=== PATIENT | female | born 1935 | race Caucasian/White ===

== ENCOUNTER 2018-10-24 11:42 | Emergency (ER) | payer OTHER, BC ==
[2018-10-24 11:53] VITALS: BP 133/73; PULSE 64; TEMP 97.6; BMI 25.4
--- NOTE | 2018-10-24 13:04 | PDOC ---
History of Present Illness - General Chief Complaint: Injury Stated Complaint: FALL // FINGER PAIN Time Seen by Provider: 10/24/18 12:14 - History of Present Illness Initial Comments: 10/24/18 12:58 83-year-old female presents for evaluation of right fourth finger pain. She states she slipped getting out of a cab or going to physical therapy today and injured her right fourth finger. Past History - Past Medical History Allergies/Adverse Reactions: Allergies Allergy/AdvReac Type Severity Reaction Status Date / Time No Known Allergies Allergy Verified 10/24/18 11:51 Home Medications: Ambulatory Orders Clopidogrel Bisulfate [Plavix -] 75 mg PO DAILY 10/24/18 Metoprolol Succinate [Toprol Xl -] mg PO DAILY 10/24/18 Cardiac Disorders: Yes (cad) COPD: No Other medical history: chr back pain - Suicide/Smoking/Psychosocial Hx Smoking History: Never smoked Review of Systems - Review of Systems Musculoskeletal: Yes: Joint Pain *Physical Exam - Vital Signs Last Vital Signs Temp Pulse Resp BP Pulse Ox 97.6 F 64 16 133/73 99 10/24/18 11:52 10/24/18 11:52 10/24/18 11:52 10/24/18 11:52 10/24/18 11:52 - Physical Exam Comments: 10/24/18 12:59 Right fourth finger skin color and temperature are normal range of motion is limited at the DIPJ. She is unable to extend. She has no gross sensory deficits. No other areas of tenderness in the right upper extremity. Moderate Sedation - Procedure Monitoring Vital Signs: Procedure Monitoring Vital Signs Temperature 97.6 F 10/24/18 11:52 Pulse Rate 64 10/24/18 11:52 Respiratory Rate 16 10/24/18 11:52 Blood Pressure 133/73 10/24/18 11:52 O2 Sat by Pulse Oximetry (%) 99 10/24/18 11:52 ED Treatment Course - RADIOLOGY Radiology Studies Ordered: Category Date Time Status FINGER(S) RIGHT [RAD] Stat Radiology 10/24/18 12:25 Taken Medical Decision Making - Medical Decision Making 10/24/18 12:59 No fracture on radiograph today. This is a fourth finger mallet injury soft tissue no bony involvement of the right fourth finger. Extension splint applied patient will follow-up with hand surgery. *DC/Admit/Observation/Transfer Diagnosis at time of Disposition: Mallet finger of right hand - Discharge Dispostion Disposition: HOME Condition at time of disposition: Stable Decision to Admit order: No - Referrals Referrals: Pearl Vickers MD [Primary Care Provider] - Darion Still MD [Staff Physician] - - Patient Instructions Printed Discharge Instructions: DI for Mallet Finger Additional Instructions: Please leave this splint on 24 hours a day 7 days a week for the next 6 weeks. He may remove it for hygiene however when he removed it your finger must remain and extension and be supported. Do not bend the tip of the finger. Return to the emergency room for worsening symptoms and follow-up with hand surgery in 2- 3 days for further evaluation and treatment options. I have shown he had a remove the splint for hygiene - Post Discharge Activity
== END 2018-10-24 13:21 | disposition home or self-care (01) ==
LOC: JERFT 11:42
PROC: 2W3JX1Z Immobilization of Right Finger using Splint (ICD-10-PCS; principal; 2018-10-24)
DX: M20.011 Mallet finger of right finger(s) (principal); W18.39XA Other fall on same level, initial encounter; Y93.89 Activity, other specified; Y92.810 Car as the place of occurrence of the external cause
CPT/HCPCS: 29130; 73140-TC-RT-FY; 99281-25

== ENCOUNTER 2019-04-17 14:10 | Emergency (ER) | payer OTHER, BC ==
--- NOTE | 2019-04-17 14:14 | PDOC ---
Rapid Medical Evaluation Time Seen by Provider: 04/17/19 14:12 Medical Evaluation: Allergies Allergy/AdvReac Type Severity Reaction Status Date / Time No Known Allergies Allergy Verified 10/24/18 11:51 04/17/19 14:13 04/17/19 13:07 I have performed a brief in-person evaluation of this patient. The patient presents with a chief complaint of: R palm lac today while closing car door this am, [facility] and now here for a tetanus vaccine. H/o CAD on blood thinners but does not remember name of meds Pertinent physical exam findings:cutaneous lac to R palm, appears to have ? dermabond I have ordered the following: boostrix The patient will proceed to the ED for further evaluation. Discharge Disposition - Diagnosis Laceration of palm Qualifiers: Encounter type: initial encounter Laterality: right Qualified Code(s): S61.411A - Laceration without foreign body of right hand, initial encounter - Referrals - Patient Instructions - Post Discharge Activity
[2019-04-17 14:16] VITALS: BP 139/67; PULSE 69; TEMP 98; BMI 25.0
[2019-04-17] MEDS ORDERED: DIPHTH,PERTUSS(ACELL),TET 0.5 ML DISP.SYRIN IM ONE ×2 (14:17→14:41)
--- NOTE | 2019-04-17 14:47 | PDOC ---
History of Present Illness - General Chief Complaint: Abrasion Stated Complaint: LACERATION Time Seen by Provider: 04/17/19 14:12 History Source: Patient Exam Limitations: Clinical Condition - History of Present Illness Initial Comments: 04/17/19 14:55 Patient with history of CAD on anticoagulant therapy present for evaluation laceration palm of right hand and for tetanus vaccine status post scraping the palm of right hand from a car door while trying to close a car door and the piece of metal on the corner of the door scraping her right hand. Patient report wound was cleaned at the [facility] by a providing [place] and sent in for tetanus vaccine as patient does not recall last tetanus vaccine. Patient denies pain to hand over wound area. Denies bleeding from site Occurred: reports: just prior to arrival Past History - Past Medical History Allergies/Adverse Reactions: Allergies Allergy/AdvReac Type Severity Reaction Status Date / Time No Known Allergies Allergy Verified 04/17/19 14:16 Home Medications: Ambulatory Orders Clopidogrel Bisulfate [Plavix -] 75 mg PO DAILY 10/24/18 Metoprolol Succinate [Toprol Xl -] mg PO DAILY 10/24/18 Cardiac Disorders: Yes (cad) COPD: No Hypercholesterolemia: No - Surgical History Cardiac Surgery: Yes (stents) - Suicide/Smoking/Psychosocial Hx Smoking History: Never smoked Review of Systems - Review of Systems Able to Perform ROS?: Yes Constitutional: No: Chills, Fever, Malaise HEENTM: No: Symptoms Reported Respiratory: No: Symptoms reported Cardiac (ROS): No: Symptoms Reported ABD/GI: No: Symptoms Reported Musculoskeletal: No: Symptoms Reported, See HPI, Muscle Pain (right hand), Joint Stiffness Integumentary: Yes: Symptoms Reported, See HPI, Other (laceration to palm of right hand) Neurological: No: Symptoms reported, Numbness, Paresthesia, Tingling, Weakness All Other Systems: Reviewed and Negative *Physical Exam - Vital Signs Last Vital Signs Temp Pulse Resp BP Pulse Ox 98 F 69 18 139/67 97 04/17/19 14:14 04/17/19 14:14 04/17/19 14:14 04/17/19 14:14 04/17/19 14:14 - Physical Exam General Appearance: Yes: Nourished, Appropriately Dressed. No: Apparent Distress HEENT: positive: Normal ENT Inspection Neck: positive: Supple Respiratory/Chest: negative: Respiratory Distress, Accessory Muscle Use Musculoskeletal: positive: Normal Inspection Extremity: positive: Normal Capillary Refill, Other (2cm linear laceration to palm of right hand over distal metacarpals of 2nd-3th fingers. no bleeding to site. no skin erythema. no swelling to wound site) Integumentary: positive: Normal Color Neurologic: positive: Fully Oriented, Alert, Normal Mood/Affect, Normal Response , Motor Strength 5/5 Medical Decision Making - Medical Decision Making 04/17/19 14:58 Patient with history of CAD on anticoagulant therapy present for evaluation laceration palm of right hand and for tetanus vaccine status post scraping the palm of right hand from a car door while trying to close a car door and the piece of metal on the corner of the door scraping her right hand. Patient report wound was cleaned at the [facility] by a providing [place] and sent in for tetanus vaccine as patient does not recall last tetanus vaccine. Patient denies pain to hand over wound area. Denies bleeding from site Exam significant for 2 cm area of superficial linear laceration to palm of right hand with bandage covering wound. Clear according with good approximation to wound edges consistent with Dermabond over wound. No bleeding from site. No erythema with swelling to wound site. No pain to right hand. Free range of motion of right hand and fingers Tetanus vaccine ordered. Patient is stable for discharge after tetanus vaccine and advised to apply Neosporin or bacitracin to wound twice a day on to healed PCP follow-up as needed *DC/Admit/Observation/Transfer Diagnosis at time of Disposition: Laceration of palm Qualifiers: Encounter type: initial encounter Laterality: right Qualified Code(s): S61.411A - Laceration without foreign body of right hand, initial encounter - Discharge Dispostion Disposition: HOME Condition at time of disposition: Stable Decision to Admit order: No - Referrals - Patient Instructions Printed Discharge Instructions: DI for Laceration Repair With Dermabond Additional Instructions: Keep wound on hand clean and dry for the next 24hrs . Apply bacitracin or neosporin twice a day to wound until healed. Follow-up with PCP as needed - Post Discharge Activity
== END 2019-04-17 14:58 | disposition home or self-care (01) ==
LOC: JERFT 14:10
PROC: 3E0234Z Introduction of Serum, Toxoid and Vaccine into Muscle, Percutaneous Approach (ICD-10-PCS; principal; 2019-04-17)
DX: S61.411A Laceration without foreign body of right hand, initial encounter (principal); W22.8XXA Striking against or struck by other objects, initial encounter; Y93.89 Activity, other specified; Y92.89 Other specified places as the place of occurrence of the external cause; I25.10 Atherosclerotic heart disease of native coronary artery without angina pectoris; Z79.01 Long term (current) use of anticoagulants; Z95.5 Presence of coronary angioplasty implant and graft
CPT/HCPCS: 90471; 90715; 99281-25

== ENCOUNTER 2021-10-07 15:19 | Emergency (ER) | payer OTHER, BC ==
[2021-10-07 15:41] VITALS: BP 133/77; PULSE 97; TEMP 98.2; BMI 22.3
[2021-10-07 16:39] LABS: ALBUMIN 3.9 g/dl (3.4-5.0); BILIRUBIN,TOTAL 0.5 mg/dl (0.2-1); CALCIUM 9.3 mg/dl (8.5-10); TOT PROT 6.2 g/dl (6.4-8.2)
[2021-10-07 16:51] LABS: BASO % 0.5 % (0-2.0); EOS % 1.5 % (0-4.5); HEMATOCRIT 38.4 % (32.4-45.2); HEMOGLOBIN 12.7 GM/dL (10.7-15.3); MCH 29.5 pg (25.7-33.7); MEAN CELL VOLUME 89.3 fl (80-96); MONO % 9.3 % (3.8-10.2); NEUT % 71.7 % (42.8-82.8); PLATELET COUNT 187 10^3/uL (134-434)
[2021-10-08 12:08] LABS: SARS-CoV-2 NAA Not Detected (Not Detected)
== END 2021-10-07 17:19 | disposition home or self-care (01) ==
LOC: FER 15:19
DX: R05.1 Acute cough (principal)
CPT/HCPCS: 36415; 71046-TC-FY; 80053; 84484; 85025; 93005; 99285-25; C9803; U0003; U0005

== ENCOUNTER 2022-05-24 16:46 | Emergency (ER) | payer OTHER, BC ==
[2022-05-24] MEDS ORDERED: BEBTELOVIMAB (EUA) 175 MG/2 ML VIAL IVPUSH ONE (16:49)
[2022-05-24 17:06] VITALS: RESP 18; TEMP 98.8; BMI 20.5
[2022-05-24 19:01] VITALS: BP 99/52; PULSE 72
== END 2022-05-24 19:01 | disposition home or self-care (01) ==
LOC: JCOVINFU 16:46
PROC: 3E033GC Introduction of Other Therapeutic Substance into Peripheral Vein, Percutaneous Approach (ICD-10-PCS; principal; 2022-05-24)
DX: U07.1 COVID-19 (principal)
CPT/HCPCS: 99284-25; M0222; Q0222

== ENCOUNTER 2024-03-15 16:31 | Emergency (ER) | payer OTHER, BC ==
[2024-03-15 16:56] VITALS: BP 116/49; PULSE 81; RESP 16; TEMP 99.3; BMI 22.4
[2024-03-15] MEDS: SODIUM CHLORIDE 1,000 ML IV STA (17:30)
[2024-03-15 17:45] LABS: HEMATOCRIT 37.2 % (32.4-45.2); HEMOGLOBIN 12.2 G/dL (10.7-15.3); MCH 30.1 pg (25.7-33.7); MCHC 32.9 g/dl (32.0-36.0); MEAN CELL VOLUME 91.6 fl (80-96); MEAN PLT VOLUME 7.9 fl (7.5-11.1); PLATELET COUNT 143.7 10^3/uL (134-434); RBC 4.06 10^6/uL (3.60-5.2); RDW 14.5 % (11.6-15.6)
[2024-03-15 17:49] LABS: INR 1.1 (0.83-1.09); PROTHROMBIN TIME (PATIENT) 12.5 SEC (9.7-13.0)
[2024-03-15 17:51] LABS: ACTIVATED PTT 30.2 SECONDS (25.2-36.5)
[2024-03-15 17:54] LABS: ALBUMIN 4.4 g/dl (3.4-5.0); BILIRUBIN,TOTAL 0.5 mg/dl (0.2-1); CALCIUM 9.3 mg/dl (8.5-10.1); CREATININE 0.8 mg/dl (0.6-1.3); MAGNESIUM 1.9 mg/dL (1.8-2.4); PHOSPHOROUS 3.2 (2.5-4.9); POTASSIUM 3.9 mmol/L (3.5-5.1)
[2024-03-15 18:42] LABS: PLATELET ESTIMATE ADEQUATE
[2024-03-15 20:12] LABS: EPITHELIAL CELLS FEW /hpf
== END 2024-03-15 20:06 | disposition home or self-care (01) ==
LOC: FER 16:31
PROC: 3E0337Z Introduction of Electrolytic and Water Balance Substance into Peripheral Vein, Percutaneous Approach (ICD-10-PCS; principal; 2024-03-15)
DX: E86.0 Dehydration (principal); R53.1 Weakness; R53.83 Other fatigue; R07.89 Other chest pain
CPT/HCPCS: 36415; 71045-TC-FY; 80053; 81003; 81015; 83735; 84100; 84484; 85027; 85610; 85730; 87086; 93005; 99285-25